=== PATIENT | female | born 2000 | race Caucasian/White ===

== ENCOUNTER 2021-05-24 12:27 | Emergency (ER) | payer SELFPAY ==
[2021-05-24 15:30] LABS: BASOPHIL 0.8 % (0-2); EOSINOPHIL 1.4 % (0-5); HCT 36.3 % (37.0-47.0); HGB 11.9 g/dl (12.5-16.0); LYMPHOCYTE 21.7 % (15-48); MCH 32.3 pg (25.0-31.0); MCHC 32.8 g/dL (32.0-36.0); MCV 98.6 fL (78.0-100.0); MONOCYTE 9.7 % (0-12); MPV 10.6 fL (6.0-9.5); NEUTROPHIL 66.1 % (41-80); NRBC 0; PLT 215 K/uL (150-400); RBC 3.68 M/uL (4.20-5.40); RDW 12.6 % (11.5-14.0); WBC 6.4 K/uL (4.0-10.5)
[2021-05-24 15:54] LABS: ALBUMIN 3.9 g/dL (3.4-5.0); BILIRUBIN - TOTAL 0.2 mg/dL (0.2-1.0); BUN/CREAT RATIO (CALC) 14.3 RATIO; CREATININE 0.63 mg/dL (0.51-0.95); TOTAL PROTEIN 6.9 g/dL (6.4-8.2)
[2021-05-24] MEDS ORDERED: NORCO 5-325 TA1 EACH PO (18:41)
== END 2021-05-24 18:58 | disposition home or self-care (01) ==
LOC: FER 12:27
PROVIDERS: Internal Medicine
DX: S22.059A Unspecified fracture of T5-T6 vertebra, initial encounter for closed fracture (principal); S22.069A Unspecified fracture of T7-T8 vertebra, initial encounter for closed fracture; M43.8X4 Other specified deforming dorsopathies, thoracic region; F17.220 Nicotine dependence, chewing tobacco, uncomplicated; V86.59XA Driver of other special all-terrain or other off-road motor vehicle injured in nontraffic accident, initial encounter; Y92.410 Unspecified street and highway as the place of occurrence of the external cause
CPT/HCPCS: 36415; 71260; 72128; 80053; 85025; Q9967

== ENCOUNTER 2021-07-02 10:41 | Emergency (ER) | payer OTHER ==
[~2021-07-02] VITALS: Ht 165.1 cm; Wt 68.0 kg
[~2021-07-02 10:41] MED LIST: NORCO 5-325 TA1 EACH PO
[2021-07-02] MEDS ORDERED: NAPROXEN500 MG PO (13:38)
[2021-07-02] MEDS ORDERED: BACLOFEN 10MG T10 MG PO (13:38)
== END 2021-07-02 14:03 | disposition home or self-care (01) ==
LOC: FER 10:41
DX: G89.29 Other chronic pain (principal); M54.6 Pain in thoracic spine; Z87.81 Personal history of (healed) traumatic fracture
CPT/HCPCS: 96372; J1100; J1885

== ENCOUNTER 2022-01-29 02:34 | Emergency (ER) | payer OTHER ==
[~2022-01-29 02:34] MED LIST changes: +BACLOFEN 10MG T10 MG PO; +NAPROXEN500 MG PO
[2022-01-29 03:33] LABS: EOSINOPHIL 1.2 % (0-5); HCT 34.3 % (37.0-47.0); HGB 11.6 g/dl (12.5-16.0); LYMPHOCYTE 29.6 % (15-48); MCH 32.6 pg (25.0-31.0); MCHC 33.8 g/dL (32.0-36.0); MCV 96.3 fL (78.0-100.0); MONOCYTE 6.4 % (0-12); MPV 10.4 fL (6.0-9.5); NEUTROPHIL 61.5 % (41-80); NRBC 0; PLT 267 K/uL (150-400); RBC 3.56 M/uL (4.20-5.40); RDW 12.1 % (11.5-14.0); WBC 6.7 K/uL (4.0-10.5)
[2022-01-29 03:52] LABS: BILIRUBIN - TOTAL 0.2 mg/dL (0.2-1.0); BUN/CREAT RATIO (CALC) 19.4 RATIO; CREATININE 0.62 mg/dL (0.51-0.95); POTASSIUM 3.6 mmol/L (3.5-5.1)
[2022-01-29 04:17] LABS: AMPHETAMINES NEGATIVE (NEGATIVE); BARBITURATES NEGATIVE (NEGATIVE); ECSTASY (MDMA) NEGATIVE (NEGATIVE); MARIJUANA (THC) NEGATIVE (NEGATIVE); METHADONE NEGATIVE (NEGATIVE); OPIATES NEGATIVE (NEGATIVE); OXYCODONE NEGATIVE (NEGATIVE)
[2022-01-29 04:21] LABS: BILIRUBIN NEGATIVE (NEGATIVE); BLOOD NEGATIVE Ery/uL (NEGATIVE); CLARITY CLEAR (CLEAR); COLOR YELLOW (YELLOW); GLUCOSE (U) NORMAL (NORMAL); LEUKOCYTES TRACE Leu/uL (NEGATIVE); NITRITE POSITIVE (NEGATIVE); PROTEIN NEGATIVE (NEGATIVE); UROBILINOGEN 0.2 mg/dL (0.2-1.0)
[2022-01-29 04:38] LABS: BACTERIA 1+; MUCOUS TRACE
[2022-01-29] MEDS ORDERED: BACTRIM DS TAB1 EACH PO (05:21)
[2022-01-29] MEDS ORDERED: NAPROXEN500 MG PO (05:21)
== END 2022-01-29 06:14 | disposition home or self-care (01) ==
LOC: FER 02:34
PROVIDERS: Internal Medicine
DX: N39.0 Urinary tract infection, site not specified (principal); F17.290 Nicotine dependence, other tobacco product, uncomplicated; Z28.310 Unvaccinated for COVID-19
CPT/HCPCS: 36415; 80053; 80305; 81001; 83690; 84145; 85025; J0696; J7120